=== PATIENT | male | born 1995 | race Caucasian/White ===

== ENCOUNTER 2018-09-05 16:58 | Emergency (ER) | payer OTHER ==
--- NOTE | 2018-09-05 18:06 | ER Document Report ---
ED Medical Screen (RME) - General Chief Complaint: Foreign Body in Eye Stated Complaint: FOREIGN BODY IN EYE Time Seen by Provider: 09/05/18 18:05 Notes: Patient thinks he has a piece of glass in his right eye. Happened this afternoon. [place] like it was in the lower lid initially, but now says she thought she saw it in the upper lid. I see that the eye is very hyperemic from rubbing and/or examining, but I do not see any foreign body present. I have upgraded him to a level yellow for him to be seen in the back promptly. TRAVEL OUTSIDE OF THE [place] IN LAST 30 DAYS: No - Related Data Allergies/Adverse Reactions: shellfish derived Allergy (Verified 09/05/18 17:21) Past Medical History - Social History Chew tobacco use (# tins/day): No Frequency of alcohol use: Rare Drug Abuse: None Renal/ Medical History: Denies: Hx Peritoneal Dialysis - Immunizations Hx Diphtheria, Pertussis, Tetanus Vaccination: Yes Physical Exam - Vital signs Vitals: Temp Pulse Resp BP Pulse Ox 99.1 F 81 16 131/79 H 97 09/05/18 17:20 09/05/18 17:20 09/05/18 17:20 09/05/18 17:20 09/05/18 17:20 Course - Vital Signs Vital signs: Temp Pulse Resp BP Pulse Ox 99.1 F 81 16 131/79 H 97 09/05/18 17:20 09/05/18 17:20 09/05/18 17:20 09/05/18 17:20 09/05/18 17:20
--- NOTE | 2018-09-05 19:26 | ER Document Report ---
ED General - General Chief Complaint: Foreign Body in Eye Stated Complaint: FOREIGN BODY IN EYE Time Seen by Provider: 09/05/18 18:05 Mode of Arrival: Ambulatory Information source: Patient Notes: 23-year-old male presents with complaint of right eye pain. Patient states that several hours prior to arrival he was sitting next to a light bulb that broke. Patient states that he immediately felt pain in his right eye. Significant other who is at the bedside states that she tried to look for glass but was unable to see anything. Patient denies any blurred vision, headache, contact lens use, glasses. TRAVEL OUTSIDE OF THE [place] IN LAST 30 DAYS: No - HPI Onset: Just prior to arrival Onset/Duration: Sudden Quality of pain: Burning, Throbbing Severity: Moderate Associated symptoms: None Exacerbated by: Denies Relieved by: Denies Similar symptoms previously: No Recently seen / treated by doctor: Yes - Related Data Allergies/Adverse Reactions: shellfish derived Allergy (Verified 09/05/18 17:21) Past Medical History - General Information source: Patient, Friend - Social History Smoking Status: Unknown if Ever Smoked Chew tobacco use (# tins/day): No Frequency of alcohol use: Occasional Drug Abuse: None Lives with: Spouse/Significant other Family History: Reviewed & Not Pertinent Patient has suicidal ideation: No Patient has homicidal ideation: No Renal/ Medical History: Denies: Hx Peritoneal Dialysis - Immunizations Hx Diphtheria, Pertussis, Tetanus Vaccination: Yes Review of Systems - Review of Systems Notes: REVIEW OF SYSTEMS: CONSTITUTIONAL : Denies fever, chills, or sweats. Denies recent illness. Denies weight loss, recent hospitalizations. EENT: Denies visual changes, Denies sore throat, oral lesions, difficulty swallowing. CARDIOVASCULAR: Denies chest pain. Denies palpitations. Denies lower extremity edema. RESPIRATORY: Denies cough. Denies shortness of breath, wheezing. GASTROINTESTINAL: Denies abdominal pain or distention. Denies nausea, vomiting, or diarrhea. Denies blood in vomitus, stools, or per rectum. Denies black, tarry stools. Denies constipation. GENITOURINARY: Denies difficulty urinating, painful urination, frequency, blood in urine, testicular pain or penile discharge. MUSCULOSKELETAL: Denies back or neck pain or stiffness. Denies joint pain or swelling. SKIN: Denies rash, lesions or sores. HEMATOLOGIC : Denies easy bruising or bleeding. LYMPHATIC: Denies swollen glands. NEUROLOGICAL: Denies confusion or altered mental status. Denies loss of consciousness. Denies dizziness or lightheadedness. Denies headache. Denies weakness or paralysis. Denies problems difficulty with ambulation, slurred speech. Denies sensory loss, numbness, or tingling. Denies seizures. PSYCHIATRIC: Denies anxiety or stress. Denies depression, suicidal ideation, or Physical Exam - Vital signs Vitals: Temp Pulse Resp BP Pulse Ox 99.1 F 81 16 131/79 H 97 09/05/18 17:20 09/05/18 17:20 09/05/18 17:20 09/05/18 17:20 09/05/18 17:20 - Notes Notes: PHYSICAL EXAMINATION: GENERAL: Well-appearing, well-nourished and in no acute distress. HEAD: Atraumatic, normocephalic. EYES: Pupils equal round and reactive to light, extraocular movements intact, sclera anicteric, conjunctiva are normal. Small area of fluorescein uptake on the 7 o'clock position of the right cornea. Eyelids everted and no foreign body appreciated. ENT: Nares patent, oropharynx clear without exudates. Moist mucous membranes. NECK: Normal range of motion, supple without lymphadenopathy LUNGS: Breath sounds clear to auscultation bilaterally and equal. No wheezes rales or rhonchi. HEART: Regular rate and rhythm without murmurs ABDOMEN: Soft, nontender, nondistended abdomen. No guarding, no rebound. No masses appreciated. Musculoskeletal: Normal range of motion, no pitting or edema. No cyanosis. NEUROLOGICAL: Cranial nerves grossly intact. Normal speech, normal gait. Normal sensory, motor exams PSYCH: Normal mood, normal affect. SKIN: Warm, Dry, normal turgor, no rashes or lesions noted. Course - Re-evaluation Re-evalutation: 09/05/18 22:37 23-year-old male presents with foreign body sensation to the right eye. He states that he was sitting next to a light bulb that was broken accidentally and immediately felt like something was in his eye. Vital signs stable upon arrival. Thorough eye exam was performed using slit lamp, fluorescein. Eyelids were inverted and no foreign body was appreciated. Eye was thoroughly irrigated. There was a small area of fluorescein uptake at the 7 o'clock position of the right cornea. Patient was administered erythromycin ophthalmic ointment in the emergency department. On reevaluation patient reports improvement of his pain. He was urged to follow-up with ophthalmology or return to the emergency department if pain persisted. 09/06/18 00:56 - Vital Signs Vital signs: Temp Pulse Resp BP Pulse Ox 98.5 F 71 18 120/73 99 09/05/18 19:37 09/05/18 19:37 09/05/18 19:37 09/05/18 19:37 09/05/18 19:37 Procedures - Eye Procedure Right Time completed: 21:00 Eye Irrigated w/ Saline (ccs): 500 Foreign body removal: Right Fluorescein applied: Right Antibiotic Oinment/Drps Admin: Right eye Slit lamp used: Yes Notes: 09/05/18 22:37 No foreign body appreciated on exam. There is a small area of fluorescein uptake. Discharge - Discharge Clinical Impression: Sensation of foreign body in eye Corneal abrasion Qualifiers: Encounter type: initial encounter Laterality: right Qualified Code(s): S05.01XA - Injury of conjunctiva and corneal abrasion without foreign body, right eye, initial encounter Condition: Good Disposition: HOME, SELF-CARE Forms: Elevated Blood Pressure Referrals: KENY RODRÍGUEZ MD [ACTIVE STAFF] - Follow up in 3-5 days
[2018-09-05] MEDS ORDERED: ERYTHROMYCIN 0.5% OPH OINT 1 GM UNIT DOSE OD ONE (19:27)
[2018-09-05 19:38] VITALS: BP 120/73
== END 2018-09-05 19:38 | disposition home or self-care (01) ==
LOC: ER 16:58
DX: S05.01XA Injury of conjunctiva and corneal abrasion without foreign body, right eye, initial encounter (principal); X58.XXXA Exposure to other specified factors, initial encounter
CPT/HCPCS: 99283